=== PATIENT | female | born 1935 | race Caucasian/White ===

== ENCOUNTER 2018-02-25 11:10 | Outpatient (CLI) | payer OTHER | END 2018-02-25 17:00 | disposition home or self-care (01) | LOC: MRI 11:10 | DX: R41.3 Other amnesia (principal) | CPT/HCPCS: 70551 ==

== ENCOUNTER → 2019-05-31 | Outpatient (CLI) | payer OTHER | END | disposition home or self-care (01) | LOC: MAMO-SONO 08:45 → SONOGRAMA 09:38 | DX: R31.0 Gross hematuria (principal) ==

== ENCOUNTER → 2022-05-08 | Emergency (ER) | payer OTHER ==
[~2022-05-08] VITALS: Ht 165.1 cm; Wt 72.6 kg
== END | disposition designated cancer center or children's hospital (05) ==
LOC: ER 18:41
DX: S01.01XA Laceration without foreign body of scalp, initial encounter (principal); W19.XXXA Unspecified fall, initial encounter; Y93.9 Activity, unspecified; Y92.9 Unspecified place or not applicable; I62.00 Nontraumatic subdural hemorrhage, unspecified; Z20.822 Contact with and (suspected) exposure to COVID-19